=== PATIENT | male | born 1980 | race African-American/Black ===

== ENCOUNTER 2022-02-05 01:33 | Emergency (ER) | payer OTHER ==
[2022-02-05 01:45] VITALS: BP 136/83; PULSE 97; RESP 20; TEMP 98.5; BMI 29.7
== END 2022-02-05 04:59 | disposition home or self-care (01) ==
LOC: JER 01:33
DX: S61.411A Laceration without foreign body of right hand, initial encounter (principal); W26.0XXA Contact with knife, initial encounter; X99.1XXA Assault by knife, initial encounter
CPT/HCPCS: 73130-TC-RT-FY; 99283-25